=== PATIENT | female | born 1980 | race American Indian/Alaskan Native ===

== ENCOUNTER 2018-02-20 18:14 | Emergency (ER) | payer SELFPAY ==
[2018-02-20 18:27] VITALS: BP 129/58
[2018-02-20] MEDS ORDERED: DELTASONE PO ONE (20:36)
[2018-02-20] MEDS ORDERED: PROVENTIL IH ONE (20:36)
--- NOTE | 2018-02-20 20:42 | Emergency Department Report ---
Blank Doc - Documentation Documentation: Patient is a 37-year-old female past medical history of asthma presents with cough and slight shortness of breath. She is concerned that it is a respiratory infection. I will give patient albuterol with chest x-ray and steroids.
--- NOTE | 2018-02-20 21:22 | XRay Report ---
FINAL REPORT EXAM: XR CHEST ROUTINE 2V HISTORY: cough TECHNIQUE: Two view chest PA and lateral PRIORS: None. FINDINGS: Cardiac and mediastinal contours are unremarkable. No focal pulmonary infiltrate is identified. No pleural fluid collection seen. Pulmonary vasculature is unremarkable. IMPRESSION: Negative two-view chest
--- NOTE | 2018-02-20 21:31 | Emergency Department Report ---
- General Chief Complaint: Adult Asthma Stated Complaint: ASTHMA/SHORT OF BREATH Time Seen by Provider: 02/20/18 20:57 Source: patient Mode of arrival: Ambulatory Limitations: No Limitations - History of Present Illness Initial Comments: This is a 37-year-old female nontoxic, well nourished in appearance, no acute signs of distress presents to the ED with c/o of productive cough, wheezing, rhinorrhea, nasal congestion x1 week. Patient describes productive cough as yellow mucus production. Patient denies any sick contact. Patient denies any recent travels, long car, recent hospital stays. Patient denies any calf pain or calf tenderness. Patient denies any chest pain, short of breath, fever, chills, nausea, vomiting, hemoptysis, numbness, tingling, headache or stiff neck. Patient stated allergies to Ibuprofen. Patient states PMH includes asthma. MD Complaint: cough, rhinorrhea, nasal congestion, other (wheezing) -: week(s) (1) Severity: mild Severity scale (0 -10): 0 Consistency: constant Improves With: nothing Worsens With: nothing Associated Symptoms: rhinorrhea, nasal congestion, cough. denies: fever, chills , myalgias, diaphoresis, headache, sore throat, stiff neck, chest pain, shortness of breath, abdominal pain, nausea, vomiting, diarrhea, dysuria, rash, confusion, right sweats, weight loss, epistaxis, hoarseness, ear pain Treatments Prior to Arrival: none - Related Data Previous Rx's Medication Instructions Recorded Last Taken Type ALBUTEROL Inhaler [ProAir HFA 2 puff IH QID PRN #1 inhalation 02/20/18 Unknown Rx Inhaler] Azithromycin [Zithromax Z-ADELA] 250 mg PO DAILY #6 tablet 02/20/18 Unknown Rx Prednisone [predniSONE 10 mg 10 mg PO .TAPER #1 tab.ds.pk 02/20/18 Unknown Rx (6-Day Pack, 21 Tabs)] Allergies Allergy/AdvReac Type Severity Reaction Status Date / Time ibuprofen [From Motrin] Allergy Hives Verified 02/20/18 18:23 ED Review of Systems ROS: Stated complaint: ASTHMA/SHORT OF BREATH Other details as noted in HPI Constitutional: denies: chills, fever Eyes: denies: eye pain, eye discharge, vision change ENT: denies: ear pain, throat pain Respiratory: cough, wheezing. denies: shortness of breath Cardiovascular: denies: chest pain, palpitations Endocrine: no symptoms reported Gastrointestinal: denies: abdominal pain, nausea, diarrhea Genitourinary: denies: urgency, dysuria, discharge Musculoskeletal: denies: back pain, joint swelling, arthralgia Skin: denies: rash, lesions Neurological: denies: headache, weakness, paresthesias Psychiatric: denies: anxiety, depression Hematological/Lymphatic: denies: easy bleeding, easy bruising ED Past Medical Hx - Past Medical History Previous Medical History?: Yes Hx Asthma: Yes - Surgical History Past Surgical History?: No - Social History Smoking Status: Never Smoker Substance Use Type: Alcohol - Medications Home Medications: Home Medications Medication Instructions Recorded Confirmed Last Taken Type ALBUTEROL Inhaler [ProAir HFA 2 puff IH QID PRN #1 inhalation 02/20/18 Unknown Rx Inhaler] Azithromycin [Zithromax Z-ADELA] 250 mg PO DAILY #6 tablet 02/20/18 Unknown Rx Prednisone [predniSONE 10 mg 10 mg PO .TAPER #1 tab.ds.pk 02/20/18 Unknown Rx (6-Day Pack, 21 Tabs)] ED Physical Exam - General Limitations: No Limitations General appearance: alert, in no apparent distress - Head Head exam: Present: atraumatic, normocephalic - Eye Eye exam: Present: normal appearance Pupils: Present: normal accommodation - ENT ENT exam: Present: normal exam, mucous membranes moist - Neck Neck exam: Present: normal inspection, full ROM. Absent: tenderness, meningismus - Respiratory Respiratory exam: Present: normal lung sounds bilaterally, wheezes (bilateral upper and lower lobes). Absent: respiratory distress, rales, rhonchi, stridor, chest wall tenderness, accessory muscle use, decreased breath sounds, prolonged expiratory - Cardiovascular Cardiovascular Exam: Present: regular rate, normal rhythm, normal heart sounds. Absent: bradycardia, tachycardia, irregular rhythm, systolic murmur, diastolic murmur, rubs, gallop - GI/Abdominal GI/Abdominal exam: Present: soft, normal bowel sounds. Absent: distended, tenderness, guarding, rebound, rigid, diminished bowel sounds - Rectal Rectal exam: Present: deferred - Extremities Exam Extremities exam: Present: normal inspection, full ROM, normal capillary refill - Back Exam Back exam: Present: normal inspection, full ROM - Neurological Exam Neurological exam: Present: alert, oriented X3, normal gait - Psychiatric Psychiatric exam: Present: normal affect, normal mood - Skin Skin exam: Present: warm, dry, intact, normal color. Absent: rash ED Course Vital Signs 02/20/18 18:24 Temperature 97.6 F Pulse Rate 69 Respiratory 18 Rate Blood Pressure 129/58 O2 Sat by Pulse 98 Oximetry - Reevaluation(s) Reevaluation #1: 02/20/18 21:29 Patient is speaking in full sentences with no signs of distress noted. ED Medical Decision Making - Medical Decision Making This is a 37-year-old female that presents with upper respiratory infection. Patient is stable and was examined by me and Dr. Lynch. Chest x-ray has been obtained and dictated by radiologist. Wells Criteria for PE/DVT 0 points. Patient is notified of x-ray results with no questions noted. Due to patient having symptoms of upper respiratory infection and worsening I will treat patient empirically with zpak. Patient was instructed to increase hydration, rest and take Motrin for fever episodes. Patient received prednisone and DuoNeb treatment. Post treatment in the ED the wheezing has subsided. Patient states she feels much better. In the ED. Vitals stable. Patient is nonfebrile and normal heart rate. Patient was orally hydrated and patient tolerated well known nausea or vomiting. Patient was instructed Follow-up with a primary care doctor in 3-5 days or if symptoms worsen and continue return to emergency room as soon as possible. At time time of discharge, the patient does not seem toxic or ill in appearance. No acute signs of distress noted. Patient agrees to discharge treatment plan of care. No further questions noted by the patient. Critical care attestation.: If time is entered above; I have spent that time in minutes in the direct care of this critically ill patient, excluding procedure time. ED Disposition Clinical Impression: Upper respiratory infection Qualifiers: URI type: unspecified URI Qualified Code(s): J06.9 - Acute upper respiratory infection, unspecified Disposition: -01 TO HOME OR SELFCARE Is pt being admited?: No Does the pt Need Aspirin: No Condition: Stable Instructions: Upper Respiratory Infection (ED), Azithromycin (By mouth), Prednisone (By mouth), Albuterol (By breathing) Additional Instructions: Follow-up with a primary care doctor in 3-5 days or if symptoms worsen and continue return to emergency room as soon as possible. Prescriptions: ALBUTEROL Inhaler [ProAir HFA Inhaler] 2 puff IH QID PRN #1 inhalation PRN Reason: Shortness Of Breath Azithromycin [Zithromax Z-ADELA] 250 mg PO DAILY #6 tablet Prednisone [predniSONE 10 mg (6-Day Pack, 21 Tabs)] 10 mg PO .TAPER #1 tab.ds.pk Referrals: PRIMARY CARE, [Primary Care Provider] - 3-5 Days KRISTA HOFFMANN MD [Staff Physician] - 3-[address] [facility] [place] [Outside] - 3-5 Days [facility] [Outside] - 3-5 Days Forms: Work/School Release Form(ED)
== END 2018-02-20 22:14 | disposition home or self-care (01) ==
LOC: ED 18:14
DX: J06.9 Acute upper respiratory infection, unspecified (principal); Z88.6 Allergy status to analgesic agent; J45.909 Unspecified asthma, uncomplicated
CPT/HCPCS: 71046; 94640; 99283; J7512